=== PATIENT | female | born 2000 | race Caucasian/White ===

== ENCOUNTER 2023-10-03 06:28 | Emergency (ER) | payer OTHER ==
[~2023-10-03] VITALS: Ht 165.1 cm; Wt 87.2 kg
[2023-10-03] MEDS ORDERED: NAPR-837 PO (08:59)
[2023-10-03] MEDS ORDERED: ASPE4PAD TOP (08:59)
[2023-10-03] MEDS ORDERED: METH-1165 PO (08:59)
[2023-10-03] MEDS: diazePAM 5MG TABLET PO ONE (09:13)
[2023-10-03] MEDS: KETOROLAC 60MG 2ML VIAL IM ONE (09:14)
[2023-10-03] MEDS: LIDOCAINE 5% (LIDODERM) PATCH TD ONE (09:15)
[2023-10-03 09:20] VITALS: BP 116/66; TEMP 98.7; O2SAT 99
== END 2023-10-03 09:33 | disposition home or self-care (01) ==
LOC: M ED 06:28
DX: M54.50 Low back pain, unspecified (principal); M54.6 Pain in thoracic spine; F17.200 Nicotine dependence, unspecified, uncomplicated
CPT/HCPCS: 81001; 87086; 96372; 99283; J1885